=== PATIENT | male | born 1970 | race Caucasian/White ===

== ENCOUNTER 2023-03-19 07:27 | Outpatient (CLI) | payer OTHER, SELFPAY | END 2023-03-19 07:28 | disposition home or self-care (01) | LOC: NFLDREF 11:14 | PROVIDERS: PCP Family Medicine; Referring Provider Family Medicine; Visit Provider Family Medicine | DX: E78.5 Hyperlipidemia, unspecified (principal); I10 Essential (primary) hypertension; E29.1 Testicular hypofunction; Z12.5 Encounter for screening for malignant neoplasm of prostate | CPT/HCPCS: 80053; 80061; 84153; 84403 ==

== ENCOUNTER 2023-07-20 07:25 | Outpatient (CLI) | payer OTHER, SELFPAY | END 2023-07-20 07:26 | disposition home or self-care (01) | LOC: NFLDREF 07-21 03:03 | PROVIDERS: PCP Family Medicine; Referring Provider Family Medicine; Visit Provider Family Medicine | DX: E78.5 Hyperlipidemia, unspecified (principal) | CPT/HCPCS: 80061; 84450; 84460 ==

== ENCOUNTER 2024-03-24 07:25 | Outpatient (CLI) | payer OTHER, SELFPAY ==
--- OUTSIDE RECORDS SUMMARY | 2024-03-25 18:41 | XMS_ITS | Clinical Summary ---
Author Organization [facility] Address [place], [place] [address] Care Team Providers Care Flour Tester Name Role Phone Boyd Redmond MD Primary Care Provider [phone]- [phone] Allergies Active Allergy Reactions Criticality Noted Date Comments Dust Mites Runny Nose 09/09/2019 Sneezes and itchy eyes Mold Runny Nose 09/09/2019 Sneezes and itchy eyes Medications Medication Sig Dispensed Refills Start Date End Date Status loratadine (CLARITIN) 10 mg tablet Take 1 tablet by mouth once daily. 0 03/05/2019 Active atorvastatin (LIPITOR) 10 mg tabletIndications:Hy perlipidemia with target LDL less than 130 Take 1 tablet by mouth once daily. 90 tablet 4 04/16/2020 Active lisinopriL (PRINIVIL; ZESTRIL) 10 mg tabletIndications:Es sential hypertension Take 1 tablet by mouth once daily. Take in the evening. 90 tablet 3 04/16/2020 Active CPAPIndications:MIR (obstructive sleep apnea) Replacement CPAP machine for home use at pressure: 7-14 cmw , Heated humidifier x 1 q 5 yr, Humidifier chamber x 1 q 6 mo, Full face mask x1 q 3mos, with cushion x 1 q mo, Heated tubing x 1 q 3 mo, Headgear x 1 q 6 mo, Filters: Disposable x 2 q mo non-disposable filters x1 q 6mo, Length of Need: 99 months, Frequency of use: Daily 1 Each 11 02/13/2023 Active Active Problems Problem Noted Date Diagnosed Date MIR, 12/01/2016, AHI51 01/16/2017 Snoring 11/21/2016 Prediabetes 12/08/2013 Hyperlipidemia LDL goal < 130 12/04/2011 Seasonal allergies 10/07/2008 Resolved Problems Problem Noted Date Diagnosed Date Resolved Date Hypersomnolence 11/21/2016 01/16/2017 Immunizations Name Administration Dates Next Due Td (Age >=7 Years) 10/25/2006 Tdap 11/21/2016 Family History Medical History Relation Name Comments Heart Disease Father CABG at 65 Other Father COPD, PVD (smok er); ischemic colitis Diabetes Mother 50s Relation Name Status Comments Father Mother Social History Tobacco Use Types Packs/Day Years Used Date Smoking Tobacco: Former Cigarettes 1 25 1 09/24/1985 - 07/25/2011 Smokeless Tobacco: Never Tobacco Cessation:Counseling Given: Yes Comments:passive smoke exposure Alcohol Use Standard Drinks/Week Comments Yes 5 (1 standard drink = 0.6 oz pur e alcohol) occ PHQ-2 Answer Date Recorded PHQ-2 TOTAL SCORE 0 04/16/2020 Social Connections Answer Date Recorded Frequency of Communication with Friends and Fami ly Not on file 09/24/2021 Financial Resource Strain Answer Date R ecorded Difficulty of Paying Living Expenses Not on file 09/24/2021 Difficulty of Paying Living Expenses Not on file 09/24/2021 Sex and Gender Information Value Date Recorded Sex Assigned at Not on file Gender Identity Not on file Sexual Orientation Not on file Obstetrics History Last Filed Vital Signs Vital Sign Reading Time Taken Comments Blood Pressure 157/91 04/16/2020 9:17 AM CDT Pulse 99 04/16/2020 9:17 AM CDT Temperature 36.6 ??C (97.8 ??F) 04/16/2020 9:17 AM CD T Respiratory Rate 16 09/09/2019 10:10 AM MANAGER BUSINESS MANAGEMENT Oxygen Saturation 97% 04/16/2020 9:17 AM CDT Inhaled Oxygen Concentration - - Weight 93 kg (205 lb) 02/13/2023 10:44 AM CDT Height 175.3 cm (5' 9) 02/13/2023 10:44 AM CDT Body Mass Index 30.27 02/13/2023 10:44 AM CDT Plan of Treatment Health Maintenance Due Date Last Done Comments HIV for age 15-65 1985 Hepatitis C screening for age 18-79 1988 Colonoscopy through age 75 2015 Zoster (shingles) series for age 50+ (1 of 2) 2020 Depression screening for age 12+ 04/16/2021 04/16/2020, 03/05/2019, 12/07/2017, Additional history exists COVID-19 vaccine series (2 - 2022- season) 2023 06/09/2021 BMI (ht and wt on same day) for age 18+ 02/14/2024 02/13/2023, 04/16/2020, 03/05/2019, Additional history exists Influenza for age 50-64 05/25/2024 Lipids for age 45-75 04/13/2025 04/13/2020, 03/03/2019, 11/30/2017, Additional history exists Tetanus booster 11/21/2026 11/21/2016, 10/25/2006 Tdap Completed 11/21/2016 Pneumococcal series for age 6-64 Aged Out No longer eligible based on patient's age to complete this topic Procedures Procedure Name Priority Date/Time Associated Diagnosis Comments LIPID PANEL W REFLEX MEASURED LDL Routine 04/13/2020 9:12 AM CDT Hyperlipidemia LDL goal < 130 from Last 3 Months or Most Recently Relevant to Health Maintenance Results * (ABNORMAL) LIPID PANEL W REFLEX MEASURED LDL (04/13/2020 9:12 AM CDT) CHOLESTEROL,TOTAL 249(H) 100 - 199 mg/dL 04/13/2020 7:01 PM CDT [facility] TRIGLYCERIDES 230(H) <150 mg/dL 04/13/2020 7:01 PM CDT [facility] HDL CHOLESTEROL 59 >40 mg/dL 0 7:01 PM CDT [facility] NON-HDL CHOLESTEROL 190(H) <145 mg/dl 04/13/2020 7:01 PM CDT [facility] CHOL/HDL RATIO 4.22 <4.50 04/13/2020 7:01 PM CDT [facility] LDL CHOLESTEROL 144(H) <=130 mg/dL 04/13/2020 7:01 PM CDT [facility] PROVIDER ORDERED STATUS RANDOM 04/13/2020 7:01 PM CDT [facility] Blood BLOOD SPECIMEN / Unknown Venipuncture / Unknown 04/13/2020 9:12 AM CDT 04/13/2020 9:12 AM CDT Boyd Redmond MD CHEMISTRY [facility] [address] [place] [address], from Last 3 Months or Most Recently Relevant to Health Maintenance Care Teams Flour Tester Relationship Specialty Start Date End Date Boyd Redmond MD [address] [place] [address] PCP - General 10/16/06
== END 2024-03-24 07:26 | disposition home or self-care (01) ==
LOC: NFLDREF 03-25 18:40
PROVIDERS: PCP Family Medicine; Referring Provider Family Medicine; Visit Provider Family Medicine
DX: R73.03 Prediabetes (principal); E78.5 Hyperlipidemia, unspecified; I10 Essential (primary) hypertension
CPT/HCPCS: 80053; 80061

== ENCOUNTER 2024-05-08 07:58 | Outpatient (CLI) | payer OTHER, SELFPAY ==
--- OUTSIDE RECORDS SUMMARY | 2024-05-08 08:01 | XMS_ITS | Clinical Summary ---
Author Organization [facility] [facility] Address [place], [place] [address] Care Team Providers Care Experience Specialist Name Role Phone Boyd Redmond MD Primary Care Provider [phone]- [phone] Allergies Active Allergy Reactions Criticality Noted Date [...] T Respiratory Rate 16 09/09/2019 10:10 AM CHEMICAL WORKER Oxygen Saturation 97% 04/16/2020 9:17 AM CDT [...] - 199 mg/dL 04/13/2020 7:01 PM CDT [facility] TRIGLYCERIDES 230(H) <150 mg/dL 04/13/2020 7:01 PM CDT [facility] HDL CHOLESTEROL 59 >40 mg/dL 0 7:01 PM CDT [facility] NON-HDL CHOLESTEROL 190(H) <145 mg/dl 04/13/2020 7:01 PM CDT [facility] CHOL/HDL RATIO 4.22 <4.50 04/13/2020 7:01 PM CDT [facility] LDL CHOLESTEROL 144(H) <=130 mg/dL 04/13/2020 7:01 PM CDT [facility] PROVIDER ORDERED STATUS RANDOM 04/13/2020 7:01 PM CDT [facility] Blood BLOOD SPECIMEN / Unknown Venipuncture / Unknown 04/13/2020 9:12 AM CDT 04/13/2020 9:12 AM CDT Boyd Redmond MD CHEMISTRY [facility] [address] [place] [address], from Last 3 Months or Most Recently Relevant to Health Maintenance Care Teams Experience Specialist Relationship Specialty Start Date End Date Boyd Redmond MD [address] [place] [address] PCP - General 10/16/06
--- NOTE | 2024-05-08 10:08 | W.ANESCHARGE ---
Anesthesia Charges Start Date/Time Anesthesia Start Date: 05/08/24 Anesthesia Start Time: 09:00 Stop Date/Time Anesthesia Stop Date: 05/08/24 Anesthesia Stop Time: 10:06
== END 2024-05-08 07:59 | disposition home or self-care (01) ==
LOC: OP CLINIC 07:59
PROVIDERS: PCP Family Medicine; Visit Provider Surgery
DX: Z86.010 Personal history of colon polyps (principal); K63.5 Polyp of colon; K64.8 Other hemorrhoids; K64.4 Residual hemorrhoidal skin tags; K57.30 Diverticulosis of large intestine without perforation or abscess without bleeding
CPT/HCPCS: 00811; 45385; 88305; J2704

== ENCOUNTER 2025-03-26 08:03 | Outpatient (CLI) | payer OTHER, SELFPAY | END 2025-03-26 08:04 | disposition home or self-care (01) | LOC: NFLDREF 03-31 03:22 | PROVIDERS: PCP Family Medicine; Referring Provider Family Medicine; Visit Provider Family Medicine | DX: E78.5 Hyperlipidemia, unspecified (principal); I10 Essential (primary) hypertension | CPT/HCPCS: 80053; 80061 ==

== ENCOUNTER 2025-04-24 13:42 | Outpatient (CLI) | payer OTHER, SELFPAY | END 2025-04-24 13:43 | disposition home or self-care (01) | LOC: RAD 13:43 | PROVIDERS: PCP Family Medicine; Visit Provider Family Medicine | DX: R01.1 Cardiac murmur, unspecified (principal) | CPT/HCPCS: 93306 ==